=== PATIENT | male | born 1960 | race Caucasian/White ===

== ENCOUNTER 2018-07-14 20:37 | Inpatient (IN) | payer MEDICAID ==
[~2018-07-14] VITALS: Ht 185.4 cm; Wt 86.2 kg
--- NOTE | 2018-07-14 20:42 | NUR ---
Dr. Shaw at bedside for MSE.
[2018-07-14] MEDS ORDERED: ASPIRIN 81 MG TAB.CHEW PO ONE (20:45)
[2018-07-14] MEDS ORDERED: NITROGLYCERIN OINT 1 GM PACKET TP ONE ×2 (20:45→21:12)
[2018-07-14] MEDS ORDERED: NITROGLYCERIN 0.4 MG/TAB BOTTLE SL ONE ×2 (20:45→21:14)
[2018-07-14] MEDS ORDERED: METOPROLOL TARTRATE 50 MG TABLET PO ONE (21:00)
[2018-07-14] MEDS ORDERED: METOPROLOL TARTRATE 5 MG/5 ML VIAL IVP ONE ×2 (21:00→21:14)
--- NOTE | 2018-07-14 21:00 | NUR ---
Xray at bedside.
[2018-07-14] MEDS ORDERED: ASPI-605 PO (21:01)
[2018-07-14] MEDS ORDERED: PANT40TA4 PO (21:01)
[2018-07-14] MEDS ORDERED: FOLI1TAB16 PO (21:01)
[2018-07-14] MEDS ORDERED: ATOR40TA PO (21:01)
[2018-07-14] MEDS ORDERED: RIVA20TA PO (21:01)
[2018-07-14] MEDS ORDERED: DOCU100C36 PO (21:01)
[2018-07-14] MEDS ORDERED: ISOS30TA6 PO (21:01)
[2018-07-14] MEDS ORDERED: METOPROLOL PO (21:01)
[2018-07-14] MEDS ORDERED: OLAN10TA3 PO (21:01)
[2018-07-14] MEDS ORDERED: ASPIRIN EC 81 MG TABLET.DR PO ONE (21:12)
[2018-07-14] MEDS ORDERED: METOPROLOL TARTRATE 50 MG TABLET ONE (21:13)
[2018-07-14 21:15] LABS: BASOPHILS % (AUTO) 0.3 % (0.0-2.0); EOSINOPHILS % (AUTO) 0.3 % (0.0-7.0); HEMATOCRIT 42.4 % (36.7-47.1); HEMOGLOBIN 13.7 g/dL (12.5-16.3); LYMPHOCYTES # (AUTO) 1.5 K/uL (20.0-40.0); LYMPHOCYTES % (AUTO) 22.8 % (20.5-51.5); MEAN CORPUSCULAR HEMOGLOBIN 27.5 uug (23.8-33.4); MEAN CORPUSCULAR HGB CONC 32 g/dL (32.5-36.3); MEAN CORPUSCULAR VOLUME 85.1 fL (73.0-96.2); MONOCYTES # (AUTO) 0.3 K/uL (2.0-10.0); MONOCYTES % (AUTO) 4.9 % (0.0-11.0); NEUTROPHILS # (AUTO) 4.8 K/uL (1.8-8.9); NEUTROPHILS % (AUTO) 71.7 % (38.5-71.5); PLATELET COUNT (AUTO) 238 K/uL (152-348); RED BLOOD CELL COUNT(AUTO) 4.99 MIL/uL (4.06-5.63); WHITE BLOOD COUNT (AUTO) 6.7 K/uL (3.6-10.2)
[2018-07-14 21:24] LABS: CREATININE 0.8 mg/dL (0.6-1.3); POTASSIUM 4.2 mmol/L (3.5-5.1)
--- NOTE | 2018-07-14 21:25 | NUR ---
Pt states still has chest pain. Administered 2nd dose of nitroglycerin. BP 119/57, HR 108
--- NOTE | 2018-07-14 21:34 | NUR ---
Pt states still has chest pain but not as much. Administered 3rd dose of nitroglycerin. BP 100/54, HR 106
[2018-07-14 21:36] LABS: BILIRUBIN,DIRECT 0.1 mg/dL (0.0-0.2); BILIRUBIN,TOTAL 0.4 mg/dL (0.2-1.0)
--- NOTE | 2018-07-14 21:41 | NUR ---
Dr. Shaw speaking with Dr. Huff.
--- NOTE | 2018-07-14 21:58 | NUR ---
CALLED [facility] PANEL. WAITING FOR YAA COOPER NP
[2018-07-14] MEDS ORDERED: MORPHINE SULFATE 4 MG/1 ML DISP.SYRIN ONE (22:13)
--- NOTE | 2018-07-14 22:35 | NUR ---
Dr. Shaw on panel call with Shital Roberts DENTISTRY TEACHER. Patient accepted for admission to [facility], diagnosis AFib, chest pain.
[2018-07-14] MEDS ORDERED: MORPHINE SULFATE 4 MG/1 ML DISP.SYRIN IV ONE (22:45)
--- NOTE | 2018-07-14 23:20 | NUR ---
Report given to Lila NAJERA Tele.
[2018-07-14] MEDS ORDERED: NITROGLYCERIN 0.4 MG/TAB BOTTLE SL PRN (23:30)
[2018-07-14] MEDS ORDERED: NORMAL SALINE FLUSH 10 ML DISP.SYRIN IV PRN (23:30)
[2018-07-14] MEDS ORDERED: DOCUSATE SODIUM 100 MG CAPSULE PO PRN (23:30)
[2018-07-14] MEDS ORDERED: MAG HYDROX/AL HYDROX/SIMETH 30 ML LIQUID UDC PO PRN (23:30)
--- NOTE | 2018-07-14 23:55 | NUR ---
AT 2335H RECEIVED PT FROM ER VIA GURNEY. UNDER THE CARE OF YAA COOPER JUNIOR LINUX ADMINISTRATOR. DX: CHEST PAIN. PT SHOWS NO SIGNS OF ACUTE DISTRESS. IV INTACT ON LEFT THUMB. BELONGING LIST DONE. PT ON HEART MONITOR AND ITS ON CONTROLLED AFIB. GROUP HOME ASSESSMENT DONE. PICTURES TAKEN AND ON THE CHART. CALL LIGHT WITHIN REACH. SAFETY AND COMFORT PROVIDED. WILL CONTINUE TO MONITOR.
[2018-07-15] MEDS: MORPHINE SULFATE 4 MG/1 ML DISP.SYRIN IV PRN ×2 (00:37→08:51)
[2018-07-15 00:50] VITALS: BP 119/71
[2018-07-15 04:00] VITALS: BP 120/77
[2018-07-15] MEDS: ONDANSETRON 4 MG/2 ML VIAL IV PRN ×3 (04:09→15:02)
[2018-07-15] MEDS: NORMAL SALINE FLUSH 10 ML DISP.SYRIN IV SCH ×3 (06:18→21:00)
--- NOTE | 2018-07-15 06:33 | NUR ---
PT SLEPT INTERMITTENTLY. PT SHOWS NO SIGNS OF DISTRESS. PRESCRIBED MEDICATION GIVEN AND PT TOLERATED IT WELL.PT GIVEN MORPHINE FOR PAIN AT 0037H . PT TOLERATED IT WELL .PT GIVEN ZOFRAN FOR NAUSEA AT 0409H. PT TOLERATED IT WELL. PT IMPROVED CONDITION. SAFETY AND COMFORT PROVIDED. ALL NEEDS ARE MET. WILL ENDORSE ACCORDINGLY TO INCOMING NURSE FOR CONTINUITY OF CARE.
[2018-07-15 08:05] LABS: BASOPHILS % (AUTO) 0.2 % (0.0-2.0); LYMPHOCYTES # (AUTO) 0.6 K/uL (20.0-40.0); LYMPHOCYTES % (AUTO) 7.7 % (20.5-51.5); WHITE BLOOD COUNT (AUTO) 7.9 K/uL (3.6-10.2)
[2018-07-15 08:12] LABS: MEAN CORPUSCULAR HEMOGLOBIN 27.5 uug (23.8-33.4); MEAN CORPUSCULAR HGB CONC 32 g/dL (32.5-36.3); MONOCYTES # (AUTO) 0.4 K/uL (2.0-10.0); MONOCYTES % (AUTO) 4.6 % (0.0-11.0); NEUTROPHILS # (AUTO) 6.9 K/uL (1.8-8.9); NEUTROPHILS % (AUTO) 87.5 % (38.5-71.5); PLATELET COUNT (AUTO) 190 K/uL (152-348); RED BLOOD CELL COUNT(AUTO) 4.39 MIL/uL (4.06-5.63)
[2018-07-15 08:13] LABS: BILIRUBIN,TOTAL 0.5 mg/dL (0.2-1.0); CREATININE 0.7 mg/dL (0.6-1.3); MAGNESIUM 1.6 mg/dL (1.8-2.4); PHOSPHOROUS 3.8 mg/dL (2.5-4.9); POTASSIUM 3.9 mmol/L (3.5-5.1); TOTAL PROTEIN, SERUM 7.5 g/dL (6.4-8.2)
[2018-07-15 08:17] LABS: HEMATOCRIT 37.3 % (36.7-47.1); HEMOGLOBIN 12.1 g/dL (12.5-16.3)
[2018-07-15] MEDS: OLANZAPINE 5 MG TABLET PO SCH ×2 (08:53→16:48)
[2018-07-15] MEDS: FOLIC ACID 1 MG TABLET PO SCH (08:54)
[2018-07-15] MEDS: ISOSORBIDE MONONITRATE 30 MG TAB.SR.24H PO SCH (08:54)
[2018-07-15] MEDS ORDERED: Medication Not On Formulary EA (Olanzapine (Zyprexa) 10 MG) PO SCH (09:00)
[2018-07-15] MEDS ORDERED: METOPROLOL 25 MG PO SCH (09:00)
[2018-07-15] MEDS ORDERED: METOPROLOL SUCCINATE XL 25 MG TAB.SR.24H PO SCH (09:00)
[2018-07-15] MEDS ORDERED: ASPIRIN 325 MG TABLET PO SCH (09:00)
[2018-07-15] MEDS: PANTOPRAZOLE SODIUM 40 MG TABLET.DR PO SCH (09:00)
[2018-07-15 09:21] LABS: THYROID STIMULATING HORMONE 0.701 mIU/mL (0.358-3.740)
[2018-07-15 11:24] VITALS: BP 124/79
[2018-07-15] MEDS ORDERED: SWABABLE VALVE TRANSFER SET EA MC ONE (13:03)
[2018-07-15] MEDS ORDERED: IV NORMAL SALINE 250 ML IV ONE (13:03)
[2018-07-15] MEDS ORDERED: IOHEXOL 350 100 ML INFUS..BTL ONE (13:03)
[2018-07-15 13:55] LABS: *BILIRUBIN,URIN NEGATIVE (NEGATIVE); *BLOOD, URINE NEGATIVE (NEGATIVE); *CLARITY,URINE CLEAR (CLEAR); *COLOR,URINE YELLOW (YELLOW); *KETONES,URINE 3+ (NEGATIVE); *UROBILINOGEN,URINE 0.2 E.U./dl (NORMAL); LEUKOCYTE ESTERASE ,URINE NEGATIVE (NEGATIVE); NITRITE, URINE NEGATIVE (NEGATIVE); PH,URINE 5.5 (5.0-8.0); UGLUCOSE NEGATIVE (NEGATIVE)
[2018-07-15 14:19] LABS: BACTERIA,URINE NONE SEEN /HPF (NONE SEEN); RBC,URINE 0-3 /HPF (0-3); SQUAMOUS EPITHELIAL CELL,UR FEW /HPF (NONE SEEN); WBC,URINE 0-3 /HPF (0-3)
[2018-07-15 14:23] LABS: MUCUS,URINE MODERATE /LPF (0-FEW)
[2018-07-15] MEDS: MAGNESIUM SULFATE/D5W 100 ML IV SCH ×2 (15:08→16:48)
[2018-07-15] MEDS: METOPROLOL TARTRATE 50 MG TABLET PO SCH ×2 (15:30→20:59)
[2018-07-15 15:56] VITALS: BP 123/87
[2018-07-15] MEDS ORDERED: LEVOFLOXACIN 500 MG/D5W 500 MG in PREMIXED 1 EACH IV SCH (16:00)
[2018-07-15] MEDS ORDERED: RIVAROXABAN 10 MG TABLET PO SCH (18:00)
[2018-07-15 20:30] VITALS: BP 99/67
--- NOTE | 2018-07-15 20:56 | NUR ---
Patient awake watching TV. No SOB denies chest pain. Vital signs WNL. A-fib controlled on the monitor w/ HR 86 bpm.
[2018-07-15] MEDS: ACETAMINOPHEN 325 MG TABLET PO PRN (20:58)
[2018-07-15] MEDS ORDERED: SIMVASTATIN 20 MG TABLET PO SCH (21:00)
--- NOTE | 2018-07-15 21:01 | NUR ---
Routine night meds given, patient tolerated.
[2018-07-16] VITALS: BP 115/71
[2018-07-16 04:00] VITALS: BP 98/72
--- NOTE | 2018-07-16 05:52 | NUR ---
INFORMATION SENT: FACESHEET,CONSULTATION,UR 07/15 INSURANCE NAME:[facility] / [facility] FAX NUMBER: [phone] / [phone] FAX SENT
[2018-07-16] MEDS: NORMAL SALINE FLUSH 10 ML DISP.SYRIN IV SCH ×2 (06:43→13:47)
[2018-07-16] MEDS ORDERED: LORAZEPAM 2 MG/1 ML VIAL IV PRN (08:15)
[2018-07-16] MEDS: PANTOPRAZOLE SODIUM 40 MG TABLET.DR PO SCH (08:43)
[2018-07-16] MEDS: OLANZAPINE 5 MG TABLET PO SCH (08:44)
[2018-07-16] MEDS: FOLIC ACID 1 MG TABLET PO SCH (08:45)
--- NOTE | 2018-07-16 08:46 | NUR ---
Patient has pink-tinged urine. Notified Dr. Oscar. Held ordered Xarelto. Will monitor patient's urine throughout shift.
[2018-07-16] MEDS ORDERED: FOLIC ACID 1 MG TABLET PO SCH (09:00)
[2018-07-16] MEDS ORDERED: THIAMINE HCL 100 MG TABLET PO SCH (09:00)
[2018-07-16] MEDS ORDERED: MULTIVITAMINS,THERAPEUTIC TABLET PO SCH (09:00)
[2018-07-16] MEDS ORDERED: ASPIRIN EC 81 MG TABLET.DR PO SCH (09:00)
[2018-07-16 11:25] VITALS: BP 114/75
[2018-07-16 11:26] LABS: CARBON DIOXIDE 25 mmol/L (21-32); CHLORIDE 104 mmol/L (98-107); CREATININE 0.6 mg/dL (0.6-1.3); GLUCOSE 93 mg/dL (74-106); MAGNESIUM 1.9 mg/dL (1.8-2.4); POTASSIUM 3.7 mmol/L (3.5-5.1); UREA NITROGEN, BLOOD 14 mg/dL (7-18)
[2018-07-16] MEDS: ACETAMINOPHEN 325 MG TABLET PO PRN (12:15)
--- NOTE | 2018-07-16 12:15 | NUR ---
Patient stated he was experiencing chest/stomach pain of 7/10. PRN 650 mg Tylenol administered.
[2018-07-16] MEDS: METOPROLOL TARTRATE 50 MG TABLET PO SCH (12:19)
[2018-07-16] MEDS: ISOSORBIDE MONONITRATE 30 MG TAB.SR.24H PO SCH (12:23)
[2018-07-16] MEDS ORDERED: DIGOXIN 250 MCG TABLET PO ONE (13:00)
--- NOTE | 2018-07-16 13:32 | NUR ---
Reassessed chest/stomach pain level. Patient stated that Tylenol helped with pain level now at 2/10.
[2018-07-16 15:25] VITALS: BP 72/41
--- NOTE | 2018-07-16 15:45 | NUR ---
Patient urine is dark viktor, no longert blood tinged. Dr. Dayne Layne ok'd to continue Xarelto upon discharge.
--- NOTE | 2018-07-16 16:20 | NUR ---
Patient d/c to [facility] via private transportation. Patient educated on current prescriptions. Educated to hold xarelto if signs of blood in the urine. Patient verbalized understanding. No signs of distress at this time. Vitals sign stable, asymptomatic, expresses that he is not experiencing any SOB or chest pain. Discharge packet taken with patient.
[2018-07-16] MEDS ORDERED: METOPROLOL TARTRATE 50 MG TABLET PO SCH (21:00)
--- NOTE | 2018-07-17 05:04 | NUR ---
INFORMATION SENT: MASHA ROGEL NOTES 07/16,DISCHARGE SUMMARY,UR 07/16 INSURANCE NAME: [facility] / [facility] FAX NUMBER: [phone] / [phone] FAX SENT
== END 2018-07-16 16:30 | DRG 139 ==
LOC: ER 20:37 → TELE3 23:22
PROVIDERS: ADMIT Registered Nurse; ATTEND Internal Medicine
PROC: 3E033RZ Introduction of Antiarrhythmic into Peripheral Vein, Percutaneous Approach (ICD-10-PCS; principal; 2018-07-14)
DX: J15.9 Unspecified bacterial pneumonia (principal); I48.0 Paroxysmal atrial fibrillation; I11.9 Hypertensive heart disease without heart failure; I69.354 Hemiplegia and hemiparesis following cerebral infarction affecting left non-dominant side; F10.20 Alcohol dependence, uncomplicated; Z79.01 Long term (current) use of anticoagulants; Y90.9 Presence of alcohol in blood, level not specified; I25.2 Old myocardial infarction; Z86.711 Personal history of pulmonary embolism; I25.10 Atherosclerotic heart disease of native coronary artery without angina pectoris; Z91.81 History of falling; Z74.09 Other reduced mobility; E78.5 Hyperlipidemia, unspecified; K21.9 Gastro-esophageal reflux disease without esophagitis; Z79.82 Long term (current) use of aspirin; Z87.891 Personal history of nicotine dependence; J98.11 Atelectasis
CPT/HCPCS: 36415; 70030-TC; 71045; 71275; 83735; 84100; 84443; 85025; 85730; 87086; 93005; 93307; A4663; G0378; J1956; J2270; J2405; J3475; J3490; J7030; J7050; Q9967

== ENCOUNTER 2018-10-27 18:42 | Emergency (ER) | payer MEDICAID ==
[~2018-10-27] VITALS: Ht 182.9 cm; Wt 81.6 kg
[~2018-10-27 18:42] MED LIST: ASPI-605 PO; ATOR40TA PO; DOCU100C36 PO; FOLI1TAB16 PO; ISOS30TA6 PO; METOPROLOL PO; OLAN10TA3 PO; PANT40TA4 PO; RIVA20TA PO
[2018-10-27] MEDS ORDERED: OLANZAPINE 5 MG TABLET PO ONE (19:00)
[2018-10-27] MEDS ORDERED: ASPIRIN 81 MG TAB.CHEW PO ONE (19:00)
[2018-10-27] MEDS ORDERED: NITROGLYCERIN OINT 1 GM PACKET TP ONE ×2 (19:00→19:24)
[2018-10-27] MEDS ORDERED: MORPHINE SULFATE 2 MG/1 ML DISP.SYRIN IV ONE (19:00)
[2018-10-27] MEDS ORDERED: NITROGLYCERIN 0.4 MG/TAB BOTTLE SL ONE ×2 (19:00→19:26)
--- NOTE | 2018-10-27 19:10 | NUR ---
BIB RA100 from [facility]. Patient has slurred speech, but could potentially be from previous hx of strokes x2. Patient came for c/o CP + SOB. Patient is able to verbalize complaints. No GI/Gu distress noted. Patient in bed at lowest position, sr upx2, call light within reach. Patient placed on monitor. Fall precautions implemented per protocol.
[2018-10-27] MEDS ORDERED: NITR0.4T48 SL (19:17)
[2018-10-27] MEDS ORDERED: FURO40TA5 PO (19:17)
[2018-10-27] MEDS ORDERED: LEVO88TA5 PO (19:17)
[2018-10-27] MEDS ORDERED: AMIO200T4 PO (19:17)
[2018-10-27] MEDS ORDERED: TRAM50TA2 PO (19:17)
[2018-10-27] MEDS ORDERED: METO50TA16 PO (19:17)
[2018-10-27] MEDS ORDERED: ATOR10TA PO (19:17)
[2018-10-27] MEDS ORDERED: CARV3.122 PO (19:17)
[2018-10-27] MEDS ORDERED: FAMO-132 PO (19:17)
[2018-10-27] MEDS ORDERED: APIX5TAB PO (19:17)
[2018-10-27] MEDS ORDERED: POTA10TA15 PO (19:17)
[2018-10-27] MEDS ORDERED: LISI-607 PO (19:17)
[2018-10-27] MEDS ORDERED: SPIR25TA6 PO (19:17)
[2018-10-27] MEDS ORDERED: MAGN400T6 PO (19:17)
[2018-10-27] MEDS ORDERED: LEVE750T10 PO (19:17)
--- NOTE | 2018-10-27 19:20 | NUR ---
Patient refused all Nitroglycerin therapy. BP level sits on the lower side per patient statement and result of monitor. ERMD notified and made aware.
[2018-10-27] MEDS ORDERED: OLANZAPINE 5 MG TABLET ONE (19:25)
[2018-10-27] MEDS ORDERED: MORPHINE SULFATE 4 MG/1 ML DISP.SYRIN ONE ×2 (19:25→20:01)
[2018-10-27] MEDS ORDERED: ASPIRIN 81 MG TAB.CHEW ONE (19:26)
[2018-10-27 19:28] LABS: CREATININE 0.9 mg/dL (0.6-1.3); POTASSIUM 3.2 mmol/L (3.5-5.1)
[2018-10-27 19:30] LABS: BASOPHILS % (AUTO) 0.4 % (0.0-2.0); EOSINOPHILS % (AUTO) 0.5 % (0.0-7.0); HEMATOCRIT 42.1 % (36.7-47.1); HEMOGLOBIN 13.6 g/dL (12.5-16.3); LYMPHOCYTES # (AUTO) 1.3 K/uL (20.0-40.0); LYMPHOCYTES % (AUTO) 30.8 % (20.5-51.5); MEAN CORPUSCULAR HEMOGLOBIN 27.8 uug (23.8-33.4); MEAN CORPUSCULAR HGB CONC 32 g/dL (32.5-36.3); MEAN CORPUSCULAR VOLUME 85.9 fL (73.0-96.2); MONOCYTES # (AUTO) 0.3 K/uL (2.0-10.0); MONOCYTES % (AUTO) 7.8 % (0.0-11.0); NEUTROPHILS # (AUTO) 2.6 K/uL (1.8-8.9); NEUTROPHILS % (AUTO) 60.5 % (38.5-71.5); PLATELET COUNT (AUTO) 227 K/uL (152-348); WHITE BLOOD COUNT (AUTO) 4.3 K/uL (3.6-10.2)
[2018-10-27 19:44] LABS: BILIRUBIN,DIRECT 0.1 mg/dL (0.0-0.2); BILIRUBIN,TOTAL 0.4 mg/dL (0.2-1.0); TOTAL PROTEIN, SERUM 8.5 g/dL (6.4-8.2)
[2018-10-27] MEDS ORDERED: POTASSIUM CHLORIDE 20 MEQ TAB.PRT.SR PO ONE (19:45)
[2018-10-27] MEDS ORDERED: MORPHINE SULFATE 4 MG/1 ML DISP.SYRIN IV ONE (20:00)
[2018-10-27] MEDS ORDERED: POTASSIUM CHLORIDE 20 MEQ TAB.PRT.SR ONE (20:01)
--- NOTE | 2018-10-27 20:33 | NUR ---
Patient stated he does not want to stay to be observed and wants to go back to facility where he resides. ERMD notified, and was given the risks of leaving the hospital with his condition. Patient is aware and verbalizes understanding.
--- NOTE | 2018-10-27 20:35 | NUR ---
JOVITA contacted to arrange transport back to [facility]. ETA 1 hour, Trip#[id number]
--- NOTE | 2018-10-27 22:01 | NUR ---
JOVITA here to transport patient back to [facility]. NAD, VSS
--- NOTE | 2018-10-27 22:02 | NUR ---
Patient does not wish to proceed with medical care recommended by Dr. Shaw. Patient given information related to possible complications, up to and including , which could occur as a result of leaving the hospital at this time. Patient verbalizes understanding of risks involved due to leaving against medical advice. Patient has signed AMA form.
[2018-10-27 22:11] VITALS: BP 100/76
== END 2018-10-27 22:11 | disposition home or self-care (01) ==
LOC: ER 18:42
DX: R07.89 Other chest pain (principal); I48.2 Chronic atrial fibrillation; I25.2 Old myocardial infarction; K21.9 Gastro-esophageal reflux disease without esophagitis; Z79.899 Other long term (current) drug therapy; Z79.82 Long term (current) use of aspirin
CPT/HCPCS: 36415; 71045; 80048; 80076; 83880; 84484; 85025; 85379; 85730; 93005; 96374; 99284; J2270; 70030-TC; A4663

== ENCOUNTER 2019-04-28 10:30 | Emergency (ER) | payer MEDICAID ==
[~2019-04-28] VITALS: Ht 182.9 cm; Wt 83.9 kg
[~2019-04-28 10:30] MED LIST changes: +AMIO200T4 PO; +APIX5TAB PO; +ATOR10TA PO; -ATOR40TA PO; +CARV3.122 PO; +FAMO-132 PO; +FURO40TA5 PO; -ISOS30TA6 PO; +LEVE750T10 PO; +LEVO88TA5 PO; +LISI-607 PO; +MAGN400T8 PO; +METO50TA16 PO; -METOPROLOL PO; +NITR0.4T48 SL; -OLAN10TA3 PO; -PANT40TA4 PO; +POTA10TA15 PO; -RIVA20TA PO; +SPIR25TA6 PO; +TRAM50TA2 PO
--- NOTE | 2019-04-28 10:30 | NUR ---
BIB private ambulance from [facility] with c/o back pain. Pt states he heard a "pop" while walking on Sunday and has had difficuly walking since then due to the pain. Pt states he has hx of CVA (about 6yrs ago), has some residual weakness to left side but is usually able to ambulate.
[2019-04-28] MEDS ORDERED: MORPHINE SULFATE 4 MG/1 ML DISP.SYRIN ONE (10:44)
[2019-04-28] MEDS ORDERED: ONDANSETRON 4 MG/2 ML VIAL ONE (10:44)
[2019-04-28] MEDS ORDERED: MORPHINE SULFATE 4 MG/1 ML DISP.SYRIN IM ONE (10:45)
[2019-04-28] MEDS ORDERED: ONDANSETRON ODT 4 MG TAB.RAPDIS SL ONE (10:45)
--- NOTE | 2019-04-28 11:39 | NUR ---
Pt back from CT, states back pain 11/20, NAD noted at this time.
[2019-04-28] MEDS ORDERED: TRAZ-214 PO (12:00)
--- NOTE | 2019-04-28 12:30 | NUR ---
Pt resting with NAD noted at this time, pending CT results.
--- NOTE | 2019-04-28 12:45 | NUR ---
Per Dr. Hennessy pt may be d/c back to [facility] called for transport, eta 1300, trip# [id number].
--- NOTE | 2019-04-28 13:01 | NUR ---
Transport is here for transport back to [facility]. Report given to Kelley at the facility. Ambuln unit #[id number].
[2019-04-28 13:20] VITALS: BP 109/59
== END 2019-04-28 13:21 | disposition home or self-care (01) ==
LOC: ER 10:33
DX: M54.5 Low back pain (principal); I25.2 Old myocardial infarction; I48.91 Unspecified atrial fibrillation; K21.9 Gastro-esophageal reflux disease without esophagitis; Z79.82 Long term (current) use of aspirin; Z79.899 Other long term (current) drug therapy
CPT/HCPCS: 72128; 72131; 96372; 99284; J2270; J2405; A4663

== ENCOUNTER 2019-05-08 12:08 | Emergency (ER) | END 2019-05-08 15:18 | disposition home or self-care (01) | DX: K92.2 Gastrointestinal hemorrhage, unspecified (principal); I25.2 Old myocardial infarction; I48.91 Unspecified atrial fibrillation; K21.9 Gastro-esophageal reflux disease without esophagitis; Z79.899 Other long term (current) drug therapy; Z79.82 Long term (current) use of aspirin | CPT/HCPCS: 36415; 71045; 80048; 80076; 84484; 85025; 85730; 86850; 86900; 86901; 93005; 96372; 99284; J1885 ==

== ENCOUNTER 2021-12-02 18:10 | Inpatient (IN) | payer MEDICAID ==
[~2021-12-02] VITALS: Ht 185.4 cm; Wt 83.9 kg
[~2021-12-02 18:10] MED LIST changes: -AMIO200T4 PO; +AMIO200T5 PO; +CYCL10TA9 PO; -FOLI1TAB16 PO; +FOLI1TAB94 PO; -LISI-607 PO; +LISI-782 PO; +NAPR-1009 PO; +POTA-10 PO; -POTA10TA15 PO; +TRAZ-182 PO; +TRAZ-257 PO
[2021-12-02 19:12] LABS: HEMATOCRIT 44.6 % (36.7-47.1); MEAN CORPUSCULAR HEMOGLOBIN 30.2 uug (23.8-33.4); MEAN CORPUSCULAR VOLUME 92.3 fL (73.0-96.2); PLATELET COUNT (AUTO) 194 K/uL (152-348)
[2021-12-02 19:23] LABS: CARBON DIOXIDE 23 mmol/L (21-32); CHLORIDE 106 mmol/L (98-107); CREATININE 1.1 mg/dL (0.6-1.3); GLUCOSE 86 mg/dL (74-106); POTASSIUM 3.8 mmol/L (3.5-5.1); UREA NITROGEN, BLOOD 21 mg/dL (7-18)
[2021-12-02] MEDS ORDERED: DILTIAZEM HCL 25 MG IV IV ONE (19:30)
[2021-12-02 19:35] LABS: ALANINE AMINOTRANSFERASE 9 U/L (16-63); ALKALINE PHOSPHATASE 95 U/L (50-136); ASPARTATE AMINOTRANSFERASE 14 U/L (15-37); BILIRUBIN,DIRECT 0.1 mg/dL (0.0-0.2); BILIRUBIN,TOTAL 0.3 mg/dL (0.2-1.0); TOTAL PROTEIN, SERUM 7.8 g/dL (6.4-8.2)
[2021-12-02] MEDS ORDERED: DILTIAZEM HCL 25 MG IV ONE (19:39)
[2021-12-02] MEDS ORDERED: HYDROCODONE/APAP 5-325MG TABLET ONE (19:39)
[2021-12-02] MEDS ORDERED: PIPERACILLIN SODIUM/TAZOBACTAM 3.375 G in IV DEXTROSE 5% 50 ML IV ONE (19:45)
[2021-12-02] MEDS ORDERED: HYDROCODONE/APAP 5-325MG TABLET PO ONE (19:45)
[2021-12-02] MEDS ORDERED: IV NORMAL SALINE 1000 ML BAG IV ONE (19:45)
--- NOTE | 2021-12-02 19:50 | NUR ---
Alycia fisher in [facility] - 12/02/21 at [address] Mccarthy at bedside
[2021-12-02] MEDS ORDERED: PIPERACILLIN/TAZOBACTAM/D5W 50 ML IV ONE (19:53)
--- NOTE | 2021-12-02 20:00 | NUR ---
Dr. Hennessy started IV on R FA 20g via US
[2021-12-02] MEDS ORDERED: MORPHINE SULFATE 4 MG/1 ML DISP.SYRIN ONE (20:11)
[2021-12-02] MEDS ORDERED: ONDANSETRON 4 MG/2 ML VIAL ONE (20:11)
[2021-12-02] MEDS ORDERED: ONDANSETRON 4 MG/2 ML VIAL IV ONE (20:15)
[2021-12-02] MEDS ORDERED: MORPHINE SULFATE 2 MG/1 ML DISP.SYRIN IV ONE (20:15)
[2021-12-02] MEDS ORDERED: DIGOXIN 500 MCG/2 ML AMP IV ONE (20:30)
[2021-12-02] MEDS ORDERED: DIGOXIN 500 MCG/2 ML AMP ONE (20:31)
--- NOTE | 2021-12-02 20:39 | NUR ---
Pt down at CT
[2021-12-02] MEDS ORDERED: DILTIAZEM HCL IV 125 MG in IV NORMAL SALINE 100 ML IV PRN ×2 (21:30→22:00)
--- NOTE | 2021-12-02 21:44 | NUR ---
Called [facility] to page Daquan Davis NP.
--- NOTE | 2021-12-02 21:53 | NUR ---
Dr. Hennessy on the phone with Daquan Davis
[2021-12-02] MEDS ORDERED: TEMAZEPAM 15 MG CAPSULE PO PRN (22:00)
[2021-12-02] MEDS ORDERED: HYDROCODONE/APAP 5-325MG TABLET PO PRN (22:00)
[2021-12-02] MEDS ORDERED: ONDANSETRON 4 MG/2 ML VIAL IV PRN (22:00)
[2021-12-02] MEDS ORDERED: MAGNESIUM HYDROXIDE 30 ML LIQUID UDC PO PRN (22:00)
[2021-12-02] MEDS ORDERED: REMEDY ESSENTIAL ZINC PASTE 113 GM TP PRN (22:00)
[2021-12-02] MEDS ORDERED: ACETAMINOPHEN 325 MG TABLET PO PRN (22:00)
[2021-12-02] MEDS ORDERED: MORPHINE SULFATE 2 MG/1 ML DISP.SYRIN IV PRN (22:00)
[2021-12-02] MEDS ORDERED: DILTIAZEM HCL 50 MG IV ONE (22:44)
[2021-12-02] MEDS ORDERED: THIA100T74 PO (22:51)
[2021-12-02] MEDS ORDERED: QUET100T PO (22:51)
[2021-12-02] MEDS ORDERED: MIDO5TAB5 PO (22:51)
[2021-12-02] MEDS ORDERED: SERT100T PO (22:51)
[2021-12-02] MEDS ORDERED: CROM10DR2 LEFTEYE (22:51)
[2021-12-02] MEDS ORDERED: PANT40TA49 PO (22:51)
[2021-12-02] MEDS ORDERED: TRAZ-257 PO (22:51)
[2021-12-02] MEDS ORDERED: CLOP75TA33 PO (22:51)
[2021-12-02] MEDS ORDERED: IBUP-1955 PO (22:51)
[2021-12-02] MEDS ORDERED: GABA-536 PO (22:51)
[2021-12-02] MEDS ORDERED: ATOR20TA PO (22:51)
[2021-12-02] MEDS ORDERED: QUET200T PO (22:51)
[2021-12-02] MEDS ORDERED: RIVA20TA PO (22:51)
[2021-12-02] MEDS ORDERED: DOCU100C36 PO (22:51)
[2021-12-02] MEDS ORDERED: MV-M1TAB18 PO (22:51)
[2021-12-02] MEDS ORDERED: HYDR453.3 TP (22:51)
[2021-12-02] MEDS ORDERED: DIGO250T PO (22:51)
[2021-12-02] MEDS: IV NS 1000 ML 1,000 ML IV PRN (23:06)
--- NOTE | 2021-12-03 01:12 | NUR ---
Pt is resting in bed with eyes closed. Breathing is equal and unlabored. No distress noted at this time.
--- NOTE | 2021-12-03 03:40 | NUR ---
HR is 85-95, still afib on the monitor. Cardizem off for now, pt tolerating well. No chest pain or SOB
[2021-12-03 06:20] LABS: MAGNESIUM 1.8 mg/dL (1.8-2.4); PHOSPHOROUS 4.3 mg/dL (2.5-4.9); POTASSIUM 4.5 mmol/L (3.5-5.1)
--- NOTE | 2021-12-03 06:28 | NUR ---
Bed not available upstairs at this time
[2021-12-03] MEDS ORDERED: MORPHINE SULFATE 4 MG/1 ML DISP.SYRIN ONE (06:40)
[2021-12-03] MEDS ORDERED: PANTOPRAZOLE SODIUM 40 MG TABLET.DR PO ONE (06:40)
[2021-12-03 07:00] LABS: THYROID STIMULATING HORMONE 1.528 mIU/mL (0.358-3.740)
[2021-12-03] MEDS ORDERED: PANTOPRAZOLE SODIUM 40 MG TABLET.DR PO SCH (07:00)
[2021-12-03 07:43] LABS: *BILIRUBIN,URIN NEGATIVE (NEGATIVE); *BLOOD, URINE NEGATIVE (NEGATIVE); *CLARITY,URINE CLEAR (CLEAR); *COLOR,URINE YELLOW (YELLOW); *KETONES,URINE TRACE (NEGATIVE); *UROBILINOGEN,URINE 0.2 E.U./dl (NORMAL); LEUKOCYTE ESTERASE ,URINE NEGATIVE (NEGATIVE); NITRITE, URINE NEGATIVE (NEGATIVE); PH,URINE 5.5 (5.0-8.0); UGLUCOSE NEGATIVE (NEGATIVE)
[2021-12-03 07:53] LABS: BACTERIA,URINE FEW /HPF (NONE SEEN); RBC,URINE 0-3 /HPF (0-3); SQUAMOUS EPITHELIAL CELL,UR FEW /HPF (NONE SEEN); URIC ACID CRYSTALS,URINE FEW /HPF (NONE SEEN); WBC,URINE 0-3 /HPF (0-3)
[2021-12-03] MEDS ORDERED: GABAPENTIN 400 MG CAPSULE ONE ×2 (10:39→14:24)
[2021-12-03] MEDS ORDERED: DIGOXIN 250 MCG TABLET ONE (10:39)
[2021-12-03] MEDS ORDERED: CLOPIDOGREL 75 MG TABLET ONE (10:40)
[2021-12-03] MEDS: DIGOXIN 250 MCG TABLET PO SCH (10:44)
[2021-12-03] MEDS: CLOPIDOGREL 75 MG TABLET PO SCH (10:44)
[2021-12-03] MEDS: GABAPENTIN 400 MG CAPSULE PO SCH ×3 (10:44→18:00)
[2021-12-03 11:11] LABS: HEMATOCRIT 42.9 % (36.7-47.1); MEAN CORPUSCULAR HEMOGLOBIN 30.6 uug (23.8-33.4); MEAN CORPUSCULAR VOLUME 93.4 fL (73.0-96.2); PLATELET COUNT (AUTO) 126 K/uL (152-348)
[2021-12-03] MEDS: SERTRALINE HCL 100 MG TABLET PO SCH (11:44)
[2021-12-03] MEDS: levETIRAcetam 500 MG TABLET PO SCH ×2 (11:44→23:55)
--- NOTE | 2021-12-03 11:52 | NUR ---
PT ACCEPTED FOR TRANSFER TO [facility] UNDER DR WEISS PT WILL GO TO ROOM 307 ADMITTING MD TO CALL ABHISHEK
[2021-12-03] MEDS ORDERED: AZITHROMYCIN 500MG/ D5W 250ML IVPB **ER PYXIS ONLY IV ONE (12:50)
[2021-12-03] MEDS ORDERED: CEFTRIAXONE /D5W 50ML IVPB **ER PYXIS IV ONE (12:50)
[2021-12-03] MEDS ORDERED: MIDODRINE HCL 5 MG TABLET ONE ×2 (12:59→17:36)
[2021-12-03] MEDS: AZITHROMYCIN IV 500 MG in IV DEXTROSE 5% 250 ML IV SCH (13:23)
[2021-12-03] MEDS ORDERED: AZIT500V8 IV (13:24)
[2021-12-03] MEDS ORDERED: CEFT1VIA15 IV (13:24)
[2021-12-03] MEDS ORDERED: ACET325T53 PO (13:24)
[2021-12-03] MEDS ORDERED: LEVA0.6320 NEB (13:24)
[2021-12-03] MEDS ORDERED: Morphine Sulfate Inj IV (13:24)
[2021-12-03] MEDS: MIDODRINE HCL 5 MG TABLET PO SCH ×2 (13:28→17:43)
[2021-12-03] MEDS: CEFTRIAXONE 1 G in IV DEXTROSE 5% 50 ML IV SCH (14:12)
--- NOTE | 2021-12-03 16:35 | NUR ---
PT IS RESTING COMFORTABLY IN BED. CONTINUE TO MONITOR THE PT.
[2021-12-03] MEDS ORDERED: INSULIN REGULAR, HUMAN 300 UNIT/3 ML VIAL ONE (17:50)
[2021-12-03] MEDS ORDERED: RIVAROXABAN 15 MG TABLET PO SCH (18:00)
[2021-12-03] MEDS: RIVAROXABAN 10 MG TABLET PO SCH (18:00)
--- NOTE | 2021-12-03 18:44 | NUR ---
PT C/O BACK PAIN AND PT's HR WAS INCREASED TO A-FIB = 126. DR HÉCTOR MOTA WAS CALLED FOR ORDERS. WAITING FOR HIS CALL BACK.
--- NOTE | 2021-12-03 19:15 | NUR ---
PT RECEIVED IN BED AWAKKE ALERT AND ORIENTED TO ALL RESP IS EVEN AND UNLABORED ON ROOM AIR.CARDIZEM DRIP IS OFF ORDERED,. PT CARDIAC RHYTHM IS AFIB CONTROLLED RATE. C/O BACK PAIN. WILL MEDICATE ORDERED. SL IN R FOREARM . VOIDS CLEAR YELLOW URINE IN URINAL,
[2021-12-03 20:00] VITALS: BP 131/87
[2021-12-03] MEDS ORDERED: MORPHINE SULFATE 2 MG/1 ML DISP.SYRIN ONE (20:38)
[2021-12-03] MEDS: MORPHINE SULFATE 2 MG/1 ML DISP.SYRIN IV PRN (20:55)
[2021-12-03] MEDS ORDERED: QUETIAPINE FUMARATE 100 MG TABLET PO SCH (21:00)
[2021-12-03] MEDS: DOCUSATE SODIUM 100 MG CAPSULE PO SCH (21:00)
--- NOTE | 2021-12-03 21:26 | NUR ---
morphine sulfate administered as orderede. for c/o back pain. N adverse reaction noted. O2Sat 93 H 112, AFIB BP 1145/97 TeMP 97.4. pt moves all extremities. PT wisnes to usse the bathroom. Offered patient the bedside commode.. PT is hesitant about using same. Pt reassured that privacy will be given .
[2021-12-03] MEDS: ATORVASTATIN 20 MG TABLET PO SCH (23:55)
[2021-12-04] VITALS (7 sets, daily range): BP systolic 95–131; BP diastolic 57–86
--- NOTE | 2021-12-04 00:05 | NUR ---
PT IS AWAKE AND IS CONFUSED, BP IS 192/121 HR 99. PT IS RESTRAINT AND IS YELLS, "COME ON ARIC". PT REASSURED. Addendum: 12/04/21 at 0009 by REGISTRY [facility] INPATIENT RN1 RN POULTRY SLAUGHTERER ERROR. NOTE IS ENTERED INCORRECTLY. PLEASE DISREGARD THIS ENTY.
[2021-12-04] MEDS ORDERED: MORPHINE SULFATE 2 MG/1 ML DISP.SYRIN ONE (00:32)
[2021-12-04] MEDS ORDERED: QUETIAPINE FUMARATE 25 MG TABLET ONE (00:33)
[2021-12-04] MEDS ORDERED: TRAZODONE 100 MG TABLET ONE ×2 (00:33→00:40)
[2021-12-04] MEDS ORDERED: QUETIAPINE FUMARATE 200 MG TABLET ONE (00:40)
[2021-12-04] MEDS: QUETIAPINE FUMARATE 200 MG TABLET PO SCH ×2 (00:42→21:01)
[2021-12-04] MEDS: TRAZODONE 100 MG TABLET PO SCH ×2 (00:44→21:01)
[2021-12-04] MEDS: MORPHINE SULFATE 2 MG/1 ML DISP.SYRIN IV PRN ×5 (00:52→18:57)
[2021-12-04] MEDS ORDERED: HYDROMORPHONE 1 MG/1 ML DISP.SYRIN ONE (02:07)
[2021-12-04 05:46] LABS: BILIRUBIN,TOTAL 0.3 mg/dL (0.2-1.0); CREATININE 0.8 mg/dL (0.6-1.3); MAGNESIUM 1.9 mg/dL (1.8-2.4); PHOSPHOROUS 2.9 mg/dL (2.5-4.9); POTASSIUM 4.5 mmol/L (3.5-5.1)
--- NOTE | 2021-12-04 06:00 | NUR ---
HANDS OIFF PT, TRANSFEREDVPT TO THIRD FLOOR [facility] PER NURSING SR. MEDIA MANAGER. T=REORT GIVEN TO RECEIVING NURSE ARIELLA TARANGO ID CONTRO;;RF AFIB. PT IS AWAKE IN NO DISTRESS. SALINE LOCOL RIGHT FOREARM IS INTACT. SAFETY MAIYAINED. PT ACCOMPANIED BY THIS RN AND N. SR. MEDIA MANAGER. VS LYNDAL.
[2021-12-04 06:20] LABS: HEMATOCRIT 36.9 % (36.7-47.1); MEAN CORPUSCULAR HEMOGLOBIN 30.5 uug (23.8-33.4); MEAN CORPUSCULAR VOLUME 92.4 fL (73.0-96.2); PLATELET COUNT (AUTO) 95 K/uL (152-348)
--- NOTE | 2021-12-04 06:30 | NUR ---
RECEIVED PT VIA EULALIA ASSISTED BY RN. REGULO X 4. ON TELE, AFIB. ON O2 @ 5LPM. SATING AT 97% DECREASED O2 TO 2LPM. IV ON R 20 G HEPLOCK. PER RN ENDORSEMENT, IV HAS BEEN LEAKING BUT WAS UNABLE TO CHANGE IV SITE. WILL BE NEEDING MIDLINE. NOTED TO HAVE LEFT LEG WEAKNESS. PT COMPLAINING OF CHRONIC BACK PAIN. SEIZURE PRECAUTION OBSERVED. CALL LIGHT IN REACH. ALL NEEDS ATTENDED. WILL ENDORSE TO MORNING SHIFT.
[2021-12-04] MEDS: PANTOPRAZOLE SODIUM 40 MG TABLET.DR PO SCH (07:43)
[2021-12-04] MEDS: LEVOTHYROXINE SODIUM 88 MCG TABLET PO SCH (08:00)
[2021-12-04] MEDS ORDERED: MORPHINE SULFATE 2 MG/1 ML DISP.SYRIN IV PRN (08:38)
[2021-12-04] MEDS ORDERED: Medication Not On Formulary EA (Rivaroxaban (Xarelto) 1 TAB) PO SCH (09:00)
[2021-12-04] MEDS ORDERED: Medication Not On Formulary EA (Mv-Mn/Iron/FA/Herbal Cmplx#190 (Vitamin D3 Complete Capl PO SCH (09:00)
[2021-12-04] MEDS: HYDROCORTISONE 2.5% CREAM 20 GM TUBE TOP SCH (10:13)
[2021-12-04] MEDS: levETIRAcetam 500 MG TABLET PO SCH ×2 (10:14→21:01)
[2021-12-04] MEDS: FOLIC ACID 1 MG TABLET PO SCH (10:15)
[2021-12-04] MEDS: CLOPIDOGREL 75 MG TABLET PO SCH (10:15)
[2021-12-04] MEDS: THIAMINE HCL 100 MG TABLET PO SCH (10:15)
[2021-12-04] MEDS: MULTIVIT, IRON, MIN NO. 8, FA TABLET PO SCH (10:15)
[2021-12-04] MEDS: SERTRALINE HCL 100 MG TABLET PO SCH (10:15)
[2021-12-04] MEDS: DIGOXIN 250 MCG TABLET PO SCH (10:16)
[2021-12-04] MEDS: GABAPENTIN 400 MG CAPSULE PO SCH ×3 (11:14→17:22)
[2021-12-04] MEDS: METOPROLOL SUCCINATE XL 25 MG TAB.SR.24H PO SCH (12:14)
[2021-12-04 12:41] LABS: BASOPHILS % (MANUAL) 7 % (0-2); EOSINOPHILS % (MANUAL) 2 % (0-8); LYMPHOCYTES % (MANUAL) 24 % (20-40); MONOCYTES % (MANUAL) 6 % (2-10); NEUTROPHILS % (MANUAL) 61 % (42-75)
[2021-12-04] MEDS: AZITHROMYCIN IV 500 MG in IV DEXTROSE 5% 250 ML IV SCH (13:17)
[2021-12-04] MEDS: CEFTRIAXONE 1 G in IV DEXTROSE 5% 50 ML IV SCH (14:30)
[2021-12-04] MEDS: IV NS 1000 ML 1,000 ML IV PRN (14:30)
[2021-12-04] MEDS: RIVAROXABAN 10 MG TABLET PO SCH (17:24)
--- NOTE | 2021-12-04 19:30 | NUR ---
Received pt in no acute distress. Iv intact. Pt on 2l nasal cannula. Pt on controlled afib.Pt can make his needs known. Safety and comfort provided. Will continue to monitor.
[2021-12-04] MEDS: ATORVASTATIN 20 MG TABLET PO SCH (21:01)
[2021-12-04] MEDS: DOCUSATE SODIUM 100 MG CAPSULE PO SCH (21:03)
[2021-12-05 04:00] VITALS: BP 101/76
[2021-12-05] MEDS: MORPHINE SULFATE 2 MG/1 ML DISP.SYRIN IV PRN ×5 (05:52→20:16)
--- NOTE | 2021-12-05 05:58 | NUR ---
at 0552H morphine prn given to pt for 9/10 pain scale on his lower back. Pt tolerated it well. Will continue to monitor.
[2021-12-05] MEDS: PANTOPRAZOLE SODIUM 40 MG TABLET.DR PO SCH (06:05)
[2021-12-05] MEDS: LEVOTHYROXINE SODIUM 88 MCG TABLET PO SCH (06:05)
[2021-12-05] MEDS: IV NS 1000 ML 1,000 ML IV PRN (06:08)
--- NOTE | 2021-12-05 06:14 | NUR ---
Pt slept intermittently. Pt in no acute distress. Iv intact. Pt on controlled afib. Pt on 2l nasal cannula.Prescribed medication given and pt tolerated it well.Pain management needed. Given pain medication prn. All needs are met. Safety and comfort provided. Vital signs within normal limit. Will endorse to incoming nurse for continuity of care.
[2021-12-05 08:59] VITALS: BP 106/62
[2021-12-05] MEDS: SERTRALINE HCL 100 MG TABLET PO SCH (09:02)
[2021-12-05] MEDS: FOLIC ACID 1 MG TABLET PO SCH (09:02)
[2021-12-05] MEDS: levETIRAcetam 500 MG TABLET PO SCH ×2 (09:02→20:13)
[2021-12-05] MEDS: DIGOXIN 250 MCG TABLET PO SCH (09:02)
[2021-12-05] MEDS: METOPROLOL SUCCINATE XL 25 MG TAB.SR.24H PO SCH (09:02)
[2021-12-05] MEDS: MULTIVIT, IRON, MIN NO. 8, FA TABLET PO SCH (09:02)
[2021-12-05] MEDS: THIAMINE HCL 100 MG TABLET PO SCH (09:03)
[2021-12-05] MEDS: CLOPIDOGREL 75 MG TABLET PO SCH (09:03)
[2021-12-05] MEDS: HYDROCORTISONE 2.5% CREAM 20 GM TUBE TOP SCH (09:06)
[2021-12-05] MEDS: GABAPENTIN 400 MG CAPSULE PO SCH ×3 (10:06→18:12)
[2021-12-05 12:02] VITALS: BP 106/69
[2021-12-05] MEDS: AZITHROMYCIN IV 500 MG in IV DEXTROSE 5% 250 ML IV SCH (12:56)
[2021-12-05] MEDS: CEFTRIAXONE 1 G in IV DEXTROSE 5% 50 ML IV SCH (14:22)
[2021-12-05 16:24] VITALS: BP 100/74
[2021-12-05] MEDS: RIVAROXABAN 10 MG TABLET PO SCH (18:12)
--- NOTE | 2021-12-05 19:30 | NUR ---
Received pt in no acute distress. Iv intact. Pt on 2l nasal cannula. Pt on controlled afib. Pt complaining of pain. Pt can make his needs known. Safety and comfort provided. Will continue to monitor.
[2021-12-05 20:07] VITALS: BP 117/82
[2021-12-05] MEDS: QUETIAPINE FUMARATE 200 MG TABLET PO SCH (20:13)
[2021-12-05] MEDS: DOCUSATE SODIUM 100 MG CAPSULE PO SCH (20:13)
[2021-12-05] MEDS: ATORVASTATIN 20 MG TABLET PO SCH (20:13)
[2021-12-05] MEDS: TRAZODONE 100 MG TABLET PO SCH (20:13)
--- NOTE | 2021-12-05 22:30 | NUR ---
Pt given Morphine 2mg prn at 2015 for his lower back pain. Pt tolerated it well. After an hour pt stated he felt better but still having slight pain. Will continue to monitor.
[2021-12-06 00:09] VITALS: BP 126/76
[2021-12-06 04:18] VITALS: BP 110/69
[2021-12-06] MEDS: MORPHINE SULFATE 2 MG/1 ML DISP.SYRIN IV PRN ×3 (05:14→13:34)
--- NOTE | 2021-12-06 05:19 | NUR ---
at 0514H Morphine 2mg prn given to pt for pain. Pt tolerated it well. Will continue to monitor. Will assess after an hour.
--- NOTE | 2021-12-06 05:48 | NUR ---
Pt slept intermittently. Pt in no acute respiratory distress. Iv intact. Pt on controlled afib. Pt can make her needs known. Pain management needed. Morphine prn given. Prescribed medication given and pt tolerated it well. All needs are met. Safety and comfort provided. Will endorse to incoming nurse for continuity of care.
[2021-12-06] MEDS: PANTOPRAZOLE SODIUM 40 MG TABLET.DR PO SCH (06:30)
[2021-12-06] MEDS: LEVOTHYROXINE SODIUM 88 MCG TABLET PO SCH (06:30)
--- NOTE | 2021-12-06 06:36 | NUR ---
Morphine effective pt stated it helps. Pt stable. Will endorse to incoming nurse.
[2021-12-06 06:46] LABS: HEMATOCRIT 40.9 % (36.7-47.1); MEAN CORPUSCULAR HEMOGLOBIN 30.2 uug (23.8-33.4); MEAN CORPUSCULAR VOLUME 92.8 fL (73.0-96.2); PLATELET COUNT (AUTO) 101 K/uL (152-348)
[2021-12-06 07:32] LABS: CREATININE 0.7 mg/dL (0.6-1.3); MAGNESIUM 1.7 mg/dL (1.8-2.4); PHOSPHOROUS 3.7 mg/dL (2.5-4.9); POTASSIUM 4.2 mmol/L (3.5-5.1)
[2021-12-06] MEDS: METOPROLOL SUCCINATE XL 25 MG TAB.SR.24H PO SCH (09:00)
[2021-12-06] MEDS: CLOPIDOGREL 75 MG TABLET PO SCH (09:14)
[2021-12-06] MEDS: SERTRALINE HCL 100 MG TABLET PO SCH (09:15)
[2021-12-06] MEDS: MULTIVIT, IRON, MIN NO. 8, FA TABLET PO SCH (09:15)
[2021-12-06] MEDS: levETIRAcetam 500 MG TABLET PO SCH (09:15)
[2021-12-06] MEDS: THIAMINE HCL 100 MG TABLET PO SCH (09:15)
[2021-12-06] MEDS: DIGOXIN 250 MCG TABLET PO SCH (09:15)
[2021-12-06] MEDS: FOLIC ACID 1 MG TABLET PO SCH (09:16)
[2021-12-06] MEDS: GABAPENTIN 400 MG CAPSULE PO SCH ×3 (09:17→17:00)
[2021-12-06] MEDS: HYDROCORTISONE 2.5% CREAM 20 GM TUBE TOP SCH (09:18)
[2021-12-06 12:00] VITALS: BP 110/80
[2021-12-06] MEDS ORDERED: CROM10DR2 LEFTEYE (12:10)
[2021-12-06] MEDS ORDERED: HYDR-4209 PO (12:10)
[2021-12-06] MEDS: AZITHROMYCIN IV 500 MG in IV DEXTROSE 5% 250 ML IV SCH (13:33)
[2021-12-06] MEDS ORDERED: MAGNESIUM OXIDE 400 MG TABLET PO ONE (14:00)
[2021-12-06] MEDS: CEFTRIAXONE 1 G in IV DEXTROSE 5% 50 ML IV SCH (14:41)
[2021-12-06 16:00] VITALS: BP 128/81
--- NOTE | 2021-12-06 17:30 | NUR ---
PT WAS DISCHARGE. ALL VITALS NORMAL. PT WILL BE PICKUP BY AMBULANCE GOING TO [facility]. ALL IV ACCESS WAS REMOVED. ALL BELONGING ACCOUNTED FOR. ALL CONTRABAND BELONGING WAS GIVEN BACK TO THE PT INCLUDING A KNIFE AND MEDICATION FROM HOME. DISCHARGE PLAN WAS DISCUSSED WITH THE PATIENT PT VERBALIZED UNDERSTANDING.
== END 2021-12-06 17:25 | DRG 720 ==
LOC: ER 18:15 → TRANSITION 12-03 10:01 → CCU 12-03 19:01 → TELE3 12-04 06:00
PROVIDERS: ADMIT Nurse Practitioner Acute Care; ATTEND Internal Medicine
PROC: 05HA33Z Insertion of Infusion Device into Left Brachial Vein, Percutaneous Approach (ICD-10-PCS; principal; 2021-12-04)
DX: A41.9 Sepsis, unspecified organism (principal); J96.01 Acute respiratory failure with hypoxia; J18.9 Pneumonia, unspecified organism; I48.20 Chronic atrial fibrillation, unspecified; I69.354 Hemiplegia and hemiparesis following cerebral infarction affecting left non-dominant side; G40.909 Epilepsy, unspecified, not intractable, without status epilepticus; J98.11 Atelectasis; G89.29 Other chronic pain; Z20.822 Contact with and (suspected) exposure to COVID-19; E03.9 Hypothyroidism, unspecified; R94.02 Abnormal brain scan; F99 Mental disorder, not otherwise specified; R65.20 Severe sepsis without septic shock; Z79.899 Other long term (current) drug therapy; Z87.891 Personal history of nicotine dependence; I25.2 Old myocardial infarction; M51.36 Other intervertebral disc degeneration, lumbar region; M47.896 Other spondylosis, lumbar region; Z91.81 History of falling; Z86.711 Personal history of pulmonary embolism; Z79.01 Long term (current) use of anticoagulants; Z79.890 Hormone replacement therapy; Z91.14 Patient's other noncompliance with medication regimen
CPT/HCPCS: 36415; 70030-TC; 70450; 71045; 72131; 83605; 83735; 84100; 84443; 84484; 85025; 85730; 87040; 87086; 93005; 93307; 97161; A4663; G0378; J0456; J0696; J1160; J1170; J1815; J2270; J2405; J2543; J3490; J7040; J7050